=== PATIENT | male | born 1960 | race Caucasian/White ===

== ENCOUNTER → 2020-08-05 11:06 | Outpatient (CLI) | payer MEDICARE, MEDICAID, SELFPAY ==
[2019-01-30 14:31] VITALS: BMI 25.1
--- NOTE | 2020-08-05 11:22 | RAD_ITS ---
STUDY: X-RAY - PELVIS AND RIGHT HIP REASON FOR EXAM: Right hip pain since a fall 1 year ago with recent worsening. TECHNIQUE: 2 views of the pelvis and hip. COMPARISON: None. FINDINGS: There is very mild vascular calcification. Normal bilateral iliac wings, sacroiliac joints and visualized sacrum. Normal bilateral superior and inferior pubic rami. Normal pubic symphysis. Normal bilateral ischial tuberosities. Normal visualized femoral head. Normal acetabulum. There are marginal osteophytes and mild to moderate joint space narrowing of the right hip joint. RAD/HIP, UNI W/ Pelvis 2-3 Views IMPRESSION: Right hip arthrosis. Electronically Signed: Elieser Aleman MD at 15:03 EST Tel , Service support ,
== END ==
PROVIDERS: PCP Student in an Organized Health Care Education/Training Program; Referring Provider Anesthesiology Pain Medicine; Visit Provider Anesthesiology Pain Medicine
DX: M25.559 Pain in unspecified hip (principal)
CPT/HCPCS: 73502

== ENCOUNTER 2022-04-06 20:22 | Emergency (ER) | payer MEDICARE, MEDICAID, SELFPAY ==
[2022-04-06 20:23] VITALS: BP 162/83; PULSE 53; RESP 17; TEMP 36.4; O2SAT 99; BMI 28.5
[2022-04-06 21:28] VITALS: PULSE 53; RESP 18; O2SAT 98
[2022-04-06 21:29] VITALS: O2SAT 98
--- NOTE | 2022-04-06 21:41 | EKG12_ITS ---
Test Reason : DYSRHYTHMIA Blood Pressure : / mmHG Vent. Rate : 051 BPM Atrial Rate : 051 BPM P-R Int : 162 ms QRS Dur : 098 ms QT Int : 424 ms P-R-T Axes : 067 068 079 degrees QTc Int : 390 ms Sinus bradycardia with sinus arrhythmia Otherwise normal ECG Confirmed by CRISTIANA TAYLOR, CAL ([id number]), editor city MARLY THOMPSON ([id number]) on 04/08/2022 9:25:36 AM Referred By: Confirmed By:CAL ZENDEJAS MD
--- NOTE | 2022-04-06 22:15 | RAD_ITS ---
INDICATION: Dyspnea EXAMINATION/TECHNIQUE: X-RAY - XR Chest 2 Views COMPARISON: None. FINDINGS: LINES/DEVICES: None. LUNGS: Symmetric, mildly increased lung volumes. No airspace opacity or abnormal interstitial pattern. Thin linear opacities in the left costophrenic angle most likely representing mild atelectasis. No nodule or mass. No pleural effusion or pneumothorax. MEDIASTINUM AND CARDIOVASCULAR STRUCTURES: Normal size and contour of the cardiomediastinal silhouette. No evidence of pulmonary vascular congestion. BONES AND SOFT TISSUES: No fracture or focal osseous lesion. RAD/Chest PA and Lateral IMPRESSION: 1. Mildly increased lung volumes and probable mild left costophrenic angle atelectasis. Otherwise normal exam. Electronically Signed: Nathen Suresh DO at 22:59 EDT ,
[2022-04-06 22:24] LABS: Anion Gap 5 (5-15); BUN 17 mg/dL (7-18); BUN/Creat Ratio 15.5 RATIO (10-20); Chloride 111 mmol/L (98-107); EST Glomerular Filtration Rate 72 mL/min (>60); Est Glom Filt Rate - Afr Amer 87 mL/min (>60); Estimated Creatinine Clearance 75.11 ml/min; Glucose 118 mg/dL (74-106); Potassium 4.4 mmol/L (3.5-5.1); Sodium Level 141 mmol/L (136-145); Troponin-I HS 8 pg/mL (3.0-78.0)
--- NOTE | 2022-04-06 22:41 | ED.VIS.DYS ---
HPI History of Present Illness Chief Complaint: Shortness of Breath Detail of Chief Complaint: Shortness of breath for 1 to 1.5 weeks Informant: patient and family Onset/Context/Timing Onset: Weeks Context: onset (Somewhat abrupt. Not necessarily related to exertion has occurred at rest) Timing: Intermittent (Varies in duration) Quality: Positive for Dyspnea on exertion; Negative for Orthopnea, PND or Wheezing Current Severity: Mild Maximum Severity: Moderate Worsened by: Nothing Relieved by: Nothing Associated Symptoms Negative for cough, rhinorrhea, post nasal drip, ear pain, fever, sore throat, subjective, chills, sweats, clear sputum, white sputum, yellow sputum or green sputum Chest Pain: Positive for None Narrative Narrative: Patient who presents with shortness of breath since power outage approxi-1 to 1.5 weeks ago. He has history of lung problems related to work exposure. He quit smoking in May. He did smoke between 1 to 2 packs/day prior to smoking. He smoked for approximately 40+ years. He denies fever, chills night sweats. Daughter states he has had dyspnea on exertion. Patient is not a good informant or not forthcoming with information. He denies chest pain of any type. He denies nausea, vomiting diarrhea. He denies upper respiratory symptoms. PE Risk Factors: Negative for Cancer, OCP + Smoking + > 35, Prior DVT or PE, Recent immobilization, Recent surgery or Recent travel Prior similar symptoms: Yes Recent Illness/Hospitalization: No PFSH [facility] Medical History (Updated 04/06/22 @ 23:[address] Mandeep Mike MD) Arthritis Hemorrhoids Mild hypercholesterolemia Perianal abscess Home Medications rosuvastatin 40 mg tablet (Crestor) 40 mg PO DAILY 01/30/19 [History Last Taken Unknown] aspirin 81 mg PO/SL DAILY 04/06/22 [History Last Taken Unknown] Allergy/AdvReac Type Severity Reaction Status Date / Time No Known Allergies Allergy Verified 04/06/22 20:26 Family History Grandmother Cancer Father Seizures Surgical History H/O right knee surgery history of index finger surgery Social History (Updated 04/06/22 @ 22:[address] Mandeep Mike MD) household members: family Smoking Status: Former smoker alcohol intake: former substance use type: does not use ROS ROS ED Constitutional Constitutional ED: Denies chills, fever(s), sweats or weight loss Eyes Eyes: Denies blurry vision, change in vision or diplopia ENT ENT ED: Denies ear pain, rhinorrhea or sore throat Cardiovascular Cardiovascular: Denies chest pain, orthopnea, palpitations, paroxysmal nocturnal dyspnea or racing heartbeat Respiratory/Chest Respiratory/Chest: Reports dyspnea and dyspnea on exertion; Denies cough, orthopnea or paroxysmal nocturnal dyspnea Gastrointestinal Gastrointestinal: Denies abdominal pain, constipation, diarrhea, melena, nausea or vomiting Genitourinary Genitourinary ED: Denies dysuria, hematuria or urinary frequency Musculoskeletal Musculoskeletal: Denies arthralgias, back pain, myalgias or neck pain Integumentary Denies abscess, Abrasions or rash Neurologic Neurologic: Denies headache(s), paresthesias or weakness Psychiatric Psychiatric: Denies anxiety or depression Endocrine Endocrinology: Denies cold intolerance or heat intolerance Hematologic/Lymphatic Hematologic/Lymphatic: Denies easy bleeding or easy bruising EXAM Physical Exam Const Vital Signs: 04/06/22 20:23 04/06/22 21:28 04/06/22 21:29 Temperature 97.5 F L Temperature Source Temporal Pulse Rate 53 L 53 L Respiratory Rate 17 18 Respiratory Effort Normal Non-Labored Respiratory Depth Normal Respiratory Pattern Normal Blood Pressure 162/83 H Blood Pressure Mean 109 Pulse Ox 99 98 Oxygen Delivery Method Room Air Room Air Room Air Positive well nourished and well developed; Negative for cachectic, contractures or unkempt General Appearance ED: well developed and NAD; Negative for unkempt, cachectic, contractures or pallor Nutritional Appearance: Negative for cachectic HEENT Reports moist mucous membranes HEENT Narrative: Ears are normal. TMs normal. Nares patent with mild clear drainage. There is no postnasal drainage noted. Uvula is midline. There is no erythema or exudate the posterior pharynx. atraumatic and trauma Eyes PERRL and EOMs intact bilaterally Neck no lymphadenopathy, supple and no meningeal signs Resp normal respiratory effort and clear to auscultation bilaterally Cardio regular rate, regular rhythm, S1 normal heart sound and S2 normal heart sound GI non-tender, non-distended and no masses Auscultation: normoactive bowel sounds Palpation: Negative for hepatomegaly or splenomegaly Back/Spine no CVA tenderness and normal to inspection Extremity normal to inspection Extremity Narrative: There is no asymmetry, swelling, discoloration, leg vein distention, palpable cords or tenderness along the distribution of the deep venous system. General Extremety ED: Negative for edema or tenderness General Extremity: Negative for edema Neuro oriented x3, CN's II-XII intact bilaterally and no sensory deficits noted [place] Coma Scale: document GCS findings Spontaneous Obeys Commands Oriented 15 Sensorium / Orientation: alert, oriented to person, oriented to place and oriented to time Speech: speech normal Sensory Exam: sensory level loss detected Motor Exam: strength 5/5 throughout Psych mental status grossly normal Appearance: Negative for unkempt Skin no wounds and skin turgor normal General Skin Exam: Negative for jaundice or pallor MDM MDM MDM Narrative Medical decision making narrative: With intermittent dyspnea this may represent cardiac versus pulmonary versus other etiology. Will obtain CBC to assess white count and rule out anemia. Basic metabolic panel to assess for renal function in the event imaging is needed. Chest x-ray to rule out pneumothorax, congestive heart failure or pneumonia. EKG to rule out acute ischemia as well as troponin. Lab Data Attestation: I reviewed the patient's lab results. Labs: Laboratory Results - last 24 hr 04/06/22 04/06/22 21:50 21:50 WBC Cancelled Corrected WBC Cancelled RBC Cancelled Hgb Cancelled Hct Cancelled MCV Cancelled MCH Cancelled MCHC Cancelled RDW Std Deviation Cancelled RDW Coeff of Mariama Cancelled Plt Count Cancelled MPV Cancelled Immature Gran % (Auto) Cancelled Neut % (Auto) Cancelled Lymph % (Auto) Cancelled [place] % (Auto) Cancelled Eos % (Auto) Cancelled Baso % (Auto) Cancelled Absolute Neuts (auto) Cancelled Absolute Lymphs (auto) Cancelled Total Counted Cancelled Neutrophils % (Manual) Cancelled Band Neutrophils % Cancelled Lymphocytes % (Manual) Cancelled Monocytes % (Manual) Cancelled Eosinophils % (Manual) Cancelled Basophils % (Manual) Cancelled Metamyelocytes % Cancelled Myelocytes % Cancelled Promyelocytes % Cancelled Blast Cells % Cancelled Plasma Cell % (Manual) Cancelled Other Cells % Cancelled Nucleated RBC % Cancelled Nucleated RBCs/100 WBC Cancelled Differential Comment Cancelled Diff Path Review Cancelled Hypersegmented Neuts Cancelled Atypical Lymphocytes Cancelled Reactive Lymphocytes Cancelled Smudge Cells Cancelled Toxic Granulation Cancelled Toxic Vacuolation Cancelled Dohle Bodies Cancelled Deneen Rods Cancelled Platelet Estimate Cancelled Plt Morphology Comment Cancelled RBC Morphology Cancelled Polychromasia Cancelled Hypochromasia Cancelled Poikilocytosis Cancelled Basophilic Stippling Cancelled Anisocytosis Cancelled Microcytosis Cancelled Macrocytosis Cancelled Spherocytes Cancelled Sickle Cells Cancelled Target Cells Cancelled Tear Drop Cells Cancelled Ovalocytes Cancelled Stomatocytes Cancelled Clark-Hatton Bodies Cancelled Lapel Cells Cancelled Bite Cells Cancelled Crenated Cell Cancelled Acanthocytes (Spur) Cancelled Rouleaux Cancelled Schistocytes Cancelled Sodium 141 Potassium 4.4 Chloride 111 H Carbon Dioxide 25.0 Anion Gap 5 BUN 17 Creatinine 1.10 Estim Creat Clear Calc 75.11 Est GFR (MDRD) Af Amer 87 Est GFR (MDRD) Non-Af 72 BUN/Creatinine Ratio 15.5 Glucose 118 H Calcium 9.0 Troponin I High Sens 8 Radiography Chest X-Ray - ED: 2 View and Read by ED Physician (2 view chest x-ray was independently reviewed and interpreted by me at 2241. Cardiac silhouette size normal. Lung parenchyma is unremarkable. Perihilar regions unremarkable. Osseous structures are unremarkable. There is no acute changes noted.) Diagnostic Testing: Clinical Impression(s) from Imaging Studies Chest X-Ray 04/06/22 22:15 IMPRESSION: 1. Mildly increased lung volumes and probable mild left costophrenic angle atelectasis. Otherwise normal exam. Electronically Signed: Nathen Suresh DO at 22:59 EDT , EKG Initial EKG: Attestation: I personally reviewed and interpreted this EKG as follows: Interpretation: Sinus Bradycardia (Rate is 51 with sinus arrhythmia otherwise the EKG is normal. GA interval is 162 ms. Cures duration 98 ms. QT duration 424 ms. Crescent is normal.) Treatment and Re-Evaluation Narrative: Patient was informed of the results at 2345. He is happy to go home. He has an appointment coming up to see his primary care physician Dr. Stevenson. Discharge Plan Triage Chief Complaint: Shortness of Breath ED Provider: Mandeep Mike Dx/Rx/DC Orders Clinical Impression: Acute dyspnea, LOGAN (dyspnea on exertion) Prescriptions: No Action rosuvastatin [Crestor] 40 mg tablet 40 mg PO DAILY aspirin 81 mg PO/SL DAILY Primary Care Provider: Jacques Stevenson Referrals: Jacques Stevenson DO [Primary Care Provider] - Keep Anne appointment Disposition Disposition: Home, Self Care
[2022-04-06 23:58] VITALS: BP 156/84; PULSE 48; RESP 14; O2SAT 98
[2022-04-07 00:05] LABS: Absolute Lymphocyte Count 2.46 X10^3/uL (0.83-4.51); Absolute Neutrophil Count 2.4 X10^3/uL (2.0-7.7); Basophil# 0.04 X10^3/uL; Basophil% 0.7 % (0-1); Eosinophil# 0.14 X10^3/uL; Eosinophils% 2.5 % (0-5); Hematocrit 42.9 % (40-54); Hemoglobin 14.3 g/dL (13.0-16.5); Lymphocyte # 2.46 X10^3/ul (0.83-4.51); Lymphocyte % 44.2 % (19-41); Mean Corp Hgb Conc 33.3 g/dL (32-36); Mean Corpuscular Hgb 30.9 pg (27.0-32.0); Mean Corpuscular Volume 92.7 fL (80-94); Mean Platelet Vol. 10.8 fl (6.2-12.0); Monocyte# 0.49 X10^3/uL; Monocyte% 8.8 % (0-10); NRBC Flagged by Analyzer 0 % (0-5); Neutrophil # 2.42 X10^3/uL (2.7-7.7); Neutrophil % 43.6 % (47-70); Platelet Count 130 K/mm3 (150-450); RBC Distribution Width CV 13.1 % (11.6-14.6); RBC Distribution Width SD 44.4 fl (35.1-43.9); Red Blood Count 4.63 M/mm3 (4.6-6.2); White Blood Count 5.6 K/mm3 (4.4-11.0)
== END 2022-04-06 23:58 | disposition home or self-care (01) ==
PROVIDERS: Emergency Provider Emergency Medicine; PCP Student in an Organized Health Care Education/Training Program; Visit Provider Emergency Medicine
DX: R06.00 Dyspnea, unspecified (principal); E78.00 Pure hypercholesterolemia, unspecified; Z87.891 Personal history of nicotine dependence; Z79.82 Long term (current) use of aspirin; Z79.899 Other long term (current) drug therapy
CPT/HCPCS: 71046; 80048; 84484; 85025; 93005; 99283; A4216

== ENCOUNTER 2022-05-04 16:35 | Emergency (ER) | payer MEDICARE, MEDICAID, SELFPAY ==
[2022-05-04 16:35] VITALS: BP 143/76; PULSE 74; RESP 18; TEMP 37; O2SAT 99; BMI 28.3
--- NOTE | 2022-05-04 16:48 | RAD_ITS ---
EXAM: XR LEFT FOOT COMPLETE, 3 OR MORE VIEWS CLINICAL INDICATION: pain TECHNIQUE: Frontal, lateral and oblique views of the left foot. This report was created using [employer] report generation technology. COMPARISON: None. FINDINGS: BONES/JOINTS: Unremarkable. No acute fracture. No subluxation. Normal alignment. Preservation of the joint space. No sclerotic or destructive changes observed. SOFT TISSUES: Unremarkable. No soft tissue swelling or gas. No radiopaque foreign body. RAD/Foot min 3 Views IMPRESSION: Negative left foot x-rays. Electronically Signed: Dk Cruz MD at 17:08 EDT ,
--- NOTE | 2022-05-04 16:48 | ED.VIS.LOWEX ---
HPI History of Present Illness Chief Complaint: Lower Extremity Injury Detail of Chief Complaint: Numbness to the left heel Informant: patient Narrative Narrative: Patient presents the emergency department complaint of numbness to his left heel that started a couple weeks ago. Patient states he is been walking more than usual try and lose some weight. He denies any trauma otherwise. Patient is a borderline diabetic. Patient does have intermittently some throbbing when he is put weight on it. He denies fever or illness otherwise. PFSH PFSH Medical History (Updated 05/04/22 @ 17:[address] Ric Langford DO) Arthritis Hemorrhoids Mild hypercholesterolemia Perianal abscess Home Medications rosuvastatin 40 mg tablet (Crestor) 40 mg PO DAILY 01/30/19 [History Last Taken Unknown] aspirin 81 mg PO/SL DAILY 04/06/22 [History Last Taken Unknown] Allergy/AdvReac Type Severity Reaction Status Date / Time No Known Allergies Allergy Verified 05/04/22 16:37 Family History Grandmother Cancer Father Seizures Surgical History (Updated 04/20/22 @ 00:50 by Miguel Al) H/O right knee surgery history of index finger surgery Social History (Updated 04/06/22 @ 22:[address] Mandeep Mike MD) household members: family Smoking Status: Former smoker alcohol intake: former substance use type: does not use ROS ROS ED Review of Systems ROS Unobtainable: other Constitutional Constitutional ED: Reports lethargy; Denies chills, fever(s), sweats or weight loss Eyes Eyes: Denies blurry vision, change in vision or diplopia ENT ENT ED: Denies rhinorrhea or sore throat Cardiovascular Cardiovascular: Reports chest pain and racing heartbeat; Denies orthopnea Respiratory/Chest Respiratory/Chest: Reports dyspnea and dyspnea on exertion; Denies cough, orthopnea or sputum Gastrointestinal Gastrointestinal: Denies abdominal pain, diarrhea, nausea or vomiting Genitourinary Genitourinary ED: Denies dysuria, hematuria or urinary frequency Musculoskeletal Musculoskeletal: Denies arthralgias, back pain, myalgias or neck pain Integumentary Denies abscess, Abrasions or rash Neurologic Neurologic: Reports other Details: Decree sensation left heel ; Denies headache(s) or weakness Psychiatric Psychiatric: Denies anxiety, depression or suicidal thoughts Endocrine Endocrinology: Denies polydipsia, polyphagia or polyuria Hematologic/Lymphatic Hematologic/Lymphatic: Denies easy bleeding, easy bruising or lymphadenopathy Allergic/Immunologic Allergic/Immunologic ED: Denies mouth swelling, tongue swelling or urticaria EXAM Physical Exam Const Vital Signs: 05/04/22 16:35 Temperature 98.6 F Temperature Source Temporal Pulse Rate 74 Respiratory Rate 18 Blood Pressure 143/76 H Blood Pressure Mean 98 Pulse Ox 99 Oxygen Delivery Method Room Air Positive well nourished and well developed General Appearance ED: well developed and NAD HEENT Reports TM's clear and moist mucous membranes normocephalic and atraumatic; Negative for trauma or tenderness Tympanic Membrane ED: Yes TM's clear Eyes PERRL and EOMs intact bilaterally General Eye ED: Negative for pale conjunctiva or scleral icterus Neck no lymphadenopathy, supple and no JVD General: Negative for tenderness Chest Wall inspection of chest normal and palpation of chest normal Chest: Negative for tenderness Resp normal respiratory effort and clear to auscultation bilaterally Effort and Inspection: Negative for respiratory distress or pain with movement Auscultation: Negative for rhonchi, wheezes or diminished lung sounds Cardio regular rate, regular rhythm, S1 normal heart sound, S2 normal heart sound and no murmurs Peripheral Pulses: pulses 2+ throughout GI normal to inspection, nondistended, normoactive bowel sounds, soft to palpation, non-tender, non-distended and no masses Back/Spine no CVA tenderness and no thoracic nor lumbar tenderness Extremity Extremity Narrative: Left foot-no evidence of cellulitis or infection noted. Patient has some mild discomfort over the left heel and he is able to feel pressure but states that feels different than the mid and forefoot. Patient has normal pulses. General Extremety ED: Negative for edema General Extremity: Negative for edema Neuro oriented x3, CN's II-XII intact bilaterally, no sensory deficits noted and gait normal Sensorium / Orientation: awake, alert, oriented to person, oriented to place and oriented to time Motor Exam: strength 5/5 throughout and strength abnormal Psych mental status grossly normal Skin no rashes or lesions noted and no wounds MDM MDM MDM Narrative Medical decision making narrative: Etiology of patient's numbness to his left heel is unclear. I suspect it may be from repetitive injury. I do not feel it is consistent with diabetic neuropathy. I will give him a referral to podiatry for follow-up. He is advised that he can use some inserts to help cushion his heel. Patient may use ibuprofen. Radiography Diagnostic Testing: Clinical Impression(s) from Imaging Studies Foot X-Ray 05/04/22 16:48 IMPRESSION: Negative left foot x-rays. Electronically Signed: Dk Cruz MD at 17:08 EDT , Three-view x-rays left foot obtained interpreted by myself as no acute fractures or acute disease process. Radiology in agreement. Discharge Plan Triage Chief Complaint: Lower Extremity Injury ED Provider: Ric Langford Dx/Rx/DC Orders Clinical Impression: Paresthesias Instructions: ED Paraesthesias Prescriptions: No Action rosuvastatin [Crestor] 40 mg tablet 40 mg PO DAILY aspirin 81 mg PO/SL DAILY Primary Care Provider: Jacques Stevenson Referrals: Jacques Stevenson DO [Primary Care Provider] - Yuan Tripp DPM [Med Staff - Active Staff] - 3-5 Days Disposition Disposition: Home, Self Care
== END 2022-05-04 17:22 | disposition home or self-care (01) ==
PROVIDERS: Emergency Provider Emergency Medicine; PCP Student in an Organized Health Care Education/Training Program; Visit Provider Emergency Medicine
DX: R20.2 Paresthesia of skin (principal); Z87.891 Personal history of nicotine dependence
CPT/HCPCS: 73630; 99282